=== PATIENT | male | born 1970 | race Caucasian/White ===

== ENCOUNTER 2017-11-02 13:09 | Emergency (ER) | payer OTHER ==
[~2017-11-02] VITALS: Ht 188 cm; Wt 98.9 kg
[~2017-11-02 13:09] MED LIST: ACETAMINOPHEN500 MG PO; ADVIL200 M1 PO; BACTRIM DS TAB1 EACH PO; CEPHALEXIN500 MG PO; CYCLOBENZAPRINE10 MG PO; DOXYCYCLINE HY100 MG PO; IBUPROFEN600 MG PO; IBUPROFEN800 MG PO; KEFLEX500 MG PO; LATUDA40 MG PO; NAPROSYN500 MG PO; NORCO 5-325 TA1 EACH PO; PENICILLIN V P500 MG PO; PROMETHAZINE-COD5 ML PO; PROVENTIL HFA6.7 GM INH; PSEUDOEPHEDRINE60 MG PO; SPACE CHAMBER1 EACH MC; TRAMADOL HCL50 MG PO; ZANTAC150 MG PO
--- OUTSIDE RECORDS SUMMARY | 2017-11-02 13:16 | XMS ---
PreManage Notification: BRIAN MCLEOD [employer] Events No recent Security Events currently on file CRITERIA MET - Group Notification CARE PROVIDERS [facility] Current PHONE: Unknown Katy has no Care Guidelines for this patient. Jacques VISIT COUNT (12 MO.) 1 MAURO Toribio TOTAL 1 NOTE: Visits indicate total known visits. ED/UCC VISIT TRACKING (12 MO.) 11/02/2017 13:11 MAURO Dietz [place] TYPE: Emergency COMPLAINT: - LEFT RING FINGER INJURY INPATIENT VISIT TRACKING (12 MO.) No inpatient visits to display in this time frame [email or web address]
== END 2017-11-02 13:30 | disposition home or self-care (01) ==
LOC: ED 13:09
DX: S69.92XA Unspecified injury of left wrist, hand and finger(s), initial encounter (principal); W20.8XXA Other cause of strike by thrown, projected or falling object, initial encounter

== ENCOUNTER 2024-06-20 17:54 | Emergency (ER) | payer OTHER ==
[~2024-06-20] VITALS: Ht 188 cm; Wt 118.0 kg
[2024-06-20 19:17] VITALS: BP 160/80
== END 2024-06-20 19:19 | disposition home or self-care (01) ==
LOC: ED 17:54
DX: S00.83XA Contusion of other part of head, initial encounter (principal); V89.2XXA Person injured in unspecified motor-vehicle accident, traffic, initial encounter; Z87.891 Personal history of nicotine dependence
CPT/HCPCS: 70450; 99284-25